=== PATIENT | male | born 1945 | race Caucasian/White ===

== ENCOUNTER → 2016-11-01 | Outpatient (CLI) | payer OTHER, MEDICARE ==
[2016-11-01 13:04] LABS: HEMOGLOBIN A1C 6.18 % (4.2-6.0)
--- NOTE | 2016-11-01 14:04 | DI ---
LEFT KNEE, 11/01/2016 11:55 AM: Clinical History: Primary osteoarthritis of the left knee. Previous Exam: None at this facility. 3 views are submitted. There is no fracture or dislocation. Severe medial compartment narrowing is pr esent along with calcifications of the medial and lateral menisci. There is chondrocalcinosis involvi ng the medial or lateral menisci and the patellar cartilage. Readin. Degenerative arthritic change of the medial compartment. 2. Chondrocalcinosis.
--- NOTE | 2016-11-01 14:18 | DI ---
LEFT ANKLE, 11/01/2016 11:55 AM: Clinical History: Calcific tendinitis of the left ankle. Previous Exam: None at this facility. 3 views are submitted. There is no fracture or dislocation. The joint spaces are intact. On the later al view, there is thickening corresponding to the location of the distal portion of the Achilles tend on probably representing tendinosis. No calcifications are identified in the tendon. There are bony d ensities at the tip of the fibula and the medial malleolus consistent with old injuries to the deltoi d ligament and the talofibular ligaments. Readin. The area and the silhouette corresponding to the Achilles tendon is quite prominent and this woul d be consistent with tendinosis. No calcification of the Achilles tendon is seen. If further evaluati on is required, then an MRI scan of the ankle would be recommended. 2. The remainder of the study is unremarkable. There is evidence of previous injuries to the deltoid ligament and the talofibular ligaments.
== END ==
LOC: MOB LAB 11:58
DX: E11.21 Type 2 diabetes mellitus with diabetic nephropathy (principal); M17.12 Unilateral primary osteoarthritis, left knee; M11.262 Other chondrocalcinosis, left knee; M65.272 Calcific tendinitis, left ankle and foot
CPT/HCPCS: 36415; 73562; 73610; 83036

== ENCOUNTER → 2016-11-08 | Outpatient (CLI) | payer OTHER, MEDICARE | LOC: MMPC 11:11 | PROVIDERS: ATTEND Surgery | DX: Z86.010 Personal history of colon polyps (principal); Z80.0 Family history of malignant neoplasm of digestive organs ==

== ENCOUNTER 2016-11-15 09:53 | Day surgery (SDC) | payer OTHER, MEDICARE ==
[~2016-11-15 09:53] MED LIST: LIDOCAINE W/ SODIUM BICARB 0.5 ML SYR ONE; Lactated Ringers 1,000 ML PRIMARY IV ONE; fentaNYL Inj 100 MCG/2 ML VIAL ONE
--- NOTE | 2016-11-15 11:16 | GEN.OPNOTE ---
Colonoscopy Procedure Note Surgery Date: 11/15/16 Preoperative Diagnosis: Colon cancer screening. Personal history of colon polyps. Family history of colon cancer. Postoperative Diagnosis: Same. Procedure: Complete colonoscopy. Surgeon: Claus Garcia MD Anesthesia Provider: Nic Acosta CRNA Anesthesia Type: MAC Indications: See preoperative diagnosis. Findings: Prep : [Very good] Cecum : [Normal] Ascending : [Normal] Transverse : [Normal] Sigmoid : [Scattered diverticuli] Rectum : [Normal] Digital Rectal Exam : [No perianal pathology. Prostate surgically absent] A lubricated flexible colonoscope was inserted and passed to the blind end of the cecum. The blind end of the cecum and ileocecal valve were clearly seen. Air was aspirated as the scope was withdrawn. Other than scattered sigmoid diverticulosis the colonoscopy was normal. Specifically there were no polyps, tumors, neoplastic masses, infectious or inflammatory processes identified. Air was aspirated as the scope was withdrawn and the scope was removed completing the procedure. The patient tolerated all aspects of the procedure well without complication. He was taken to outpatient surgery in stable condition. Follow-up will be with my office on an as-needed basis. It was recommended he undergo follow-up colonoscopy in 5 years for his history of polyps and a family history of colon cancer.
[2016-11-15 12:37] VITALS: RESP 16
[2016-11-15 12:40] VITALS: TEMP 98.4
== END 2016-11-15 11:43 | disposition home or self-care (01) ==
LOC: SDSC 09:53
PROVIDERS: ATTEND Surgery
DX: Z86.010 Personal history of colon polyps (principal); Z80.0 Family history of malignant neoplasm of digestive organs; Z12.11 Encounter for screening for malignant neoplasm of colon
CPT/HCPCS: 45378 ×2; J2704; J3010; J7120

== ENCOUNTER → 2017-01-01 | Outpatient (CLI) | payer OTHER, MEDICARE | LOC: MOB LAB 10:20 | DX: C61 Malignant neoplasm of prostate (principal) | CPT/HCPCS: 36415; 84153 ==